=== PATIENT | male | born 1990 | race Caucasian/White ===

== ENCOUNTER 2016-11-18 17:29 | Emergency (ER) | payer OTHER ==
[2016-11-18] MEDS ORDERED: SULFAMETH/TRIMETH DS 800/160 MG TABLET PO STA (18:41)
[2016-11-18] MEDS ORDERED: HYDROcod/ACETAM 5/325 MG TABLET PO STA (18:41)
[2016-11-18] MEDS ORDERED: HYDROcod/ACETAM 5/325 MG TABLET ONE (18:51)
[2016-11-18] MEDS ORDERED: SULFAMETH/TRIMETH DS 800/160 MG TABLET PO ONE ×2 (18:52)
== END 2016-11-18 19:06 | disposition home or self-care (01) ==
DX: K13.0 Diseases of lips (principal); L03.211 Cellulitis of face
CPT/HCPCS: 99282; 99283; A9270